=== PATIENT | female | born 1995 | race Asian ===

== ENCOUNTER 2021-03-21 03:54 | Emergency (ER) | payer SELFPAY ==
--- NOTE | 2021-03-21 03:59 | NUR ---
PT REFUSED TO GET TRIAGED OR SEEN BY MD AND LEFT THE HOSPITAL. AWARE
== END 2021-03-21 04:01 | disposition left against medical advice (07) ==
LOC: ER 03:56
DX: Z53.21 Procedure and treatment not carried out due to patient leaving prior to being seen by health care provider (principal)